=== PATIENT | female | born 1995 | race Two or more races ===

== ENCOUNTER 2018-03-08 09:23 | Inpatient (IN) | payer MEDICAID, OTHER ==
[~2018-03-08] VITALS: Ht 160 cm; Wt 92.9 kg
[2018-03-08] MEDS ORDERED: SODIUM CHLORIDE 0.9% 1,000 ML IV ONE (09:46)
[2018-03-08] MEDS ORDERED: LEVOFLOXACIN 500 MG/100 ML PREMIX BAG IV ONE (10:00)
[2018-03-08 10:09] LABS: Basophils # (auto) 0.1 uL; Basophils % (auto) 0.4 % (0.0-2.0); Eosinophils # (auto) 0 uL; Hemoglobin 14.2 g/dL (12.2-16.2); Lymphocytes # (auto) 1.4 uL; Lymphocytes % (auto) 8.6 % (10.0-50.0); Mean Corpuscular Hemoglobin 29.7 pg (28.0-32.0); Mean Corpuscular Hgb Conc. 32.9 g/dL (32.0-36.0); Mean Corpuscular Volume 90.4 fL (80.0-100.0); Monocytes # (auto) 0.4 uL; Monocytes % (auto) 2.7 % (0.0-12.0); Neutrophils # (auto) 14.4 uL; Neutrophils % (auto) 88.3 % (37.0-80.0); Nucleated Red Blood Cells % 0.1 %; Platelet Count (auto) 96 10^3/uL (140-450); Red Blood Cells 4.76 10^6/uL (4.0-5.20); Red Cell Distribution Width 14.5 % (11.8-14.3); White Blood Cell 16.3 10^3/uL (4.4-10.8)
[2018-03-08 10:23] LABS: INR 1.09 (0.9-1.15); Partial Thromboplastin Time 32.1 sec (23.78-33.04); Prothrombin Time 11.6 sec (9.27-12.13)
[2018-03-08 10:26] LABS: Alanine Aminotransferase 147 U/L (13-56); Albumin 2.7 g/dL (3.4-5.0); Anion Gap 9 (5-15); Aspartate Aminotransferase 78 U/L (15-37); BUN/Creatinine Ratio 15.8; Blood Urea Nitrogen 15 mg/dL (7-18); Calcium 7.7 mg/dL (8.5-10.1); Carbon Dioxide 22 mmol/L (21-32); Chloride 106 mmol/L (98-107); GFR African American 95 mL/min; GFR Non-African American 78 mL/min; Glucose 94 mg/dL (74-106); Potassium 3.9 mmol/L (3.5-5.1); Sodium 137 mmol/L (136-145)
[2018-03-08 10:32] LABS: Alkaline Phosphatase 68 U/L (45-117); Bilirubin, Total 1.2 mg/dL (0.2-1.0); Total Protein 6.1 g/dL (6.4-8.2)
[2018-03-08] MEDS: SODIUM CHLORIDE 0.9% 1,000 ML IV SCH ×2 (11:43→21:30)
[2018-03-08] MEDS ORDERED: NITROGLYCERIN 0.4 MG SL TAB SL PRN (11:45)
[2018-03-08] MEDS ORDERED: LORazepam 0.5 MG TAB PO PRN (11:45)
[2018-03-08] MEDS ORDERED: MORPHINE SULFATE 8mg/ml INJ SDV IV PRN ×3 (11:45)
[2018-03-08] MEDS ORDERED: LACTULOSE 20Gm/30ML SOLN PO PRN (11:45)
[2018-03-08] MEDS ORDERED: TEMAZEPAM 15 MG CAP PO PRN (11:45)
[2018-03-08] MEDS ORDERED: PROMETHAZINE HCL 25 MG/ML 1ML IV PRN (11:45)
[2018-03-08] MEDS ORDERED: SODIUM CHLORIDE 0.9% 500 ML IV ONE (11:45)
[2018-03-08] MEDS ORDERED: PIPERACILLIN-TAZOB 3.375GM 100 ML IV ONE (11:45)
[2018-03-08] MEDS ORDERED: predniSONE 20 MG TAB PO ONE (12:15)
[2018-03-08 12:16] LABS: Folate (Folic Acid) 23.06 ng/mL (5.38-24)
[2018-03-08] MEDS: ASPirin 81 mg TAB PO SCH (12:30)
[2018-03-08 12:32] LABS: CRP High Sensitivity 10.8 mg/dL (< 0.3)
[2018-03-08] MEDS: MYCOPHENOLATE 500 MG TAB PO SCH ×2 (14:00→22:08)
[2018-03-08 17:05] LABS: Urine Bacteria FEW /hpf (None Seen); Urine Blood 1+ /uL (Negative); Urine Mucus FEW (None Seen); Urine Specific Gravity 1.009 (1.001-1.035); Urine WBC 12 /hpf (0 - 5)
[2018-03-08 17:15] LABS: Alcohol, Urine < 3.0 mg/dL (0-5); Amphetamine Screen, Urine NEGATIVE (NEGATIVE); Barbiturate Scree,Urine NEGATIVE (NEGATIVE); Benzodiazephine Screen, Urine NEGATIVE (NEGATIVE); Cannabinoid Screen, Urine NEGATIVE (NEGATIVE); Cocaine Screen, Urine NEGATIVE (NEGATIVE); Opiate Scree,Urine NEGATIVE (NEGATIVE); Phencyclidine Screen, Urine NEGATIVE (NEGATIVE)
[2018-03-08] MEDS ORDERED: LORazepam 2MG/ML-1ML VIAL IV PRN (17:15)
[2018-03-08] MEDS: PIPERACILLIN-TAZOB 3.375GM 100 ML IV SCH (18:28)
[2018-03-08] MEDS ORDERED: ENOXAPARIN SOD 80 MG/0.8ML SYRINGE SC ONE (20:45)
[2018-03-08] MEDS ORDERED: IOHEXOL 350 MG/ML 100ML IJ ONE (20:55)
[2018-03-08] MEDS: predniSONE 20 MG TAB PO SCH (22:08)
[2018-03-08] MEDS: HYDROXYCHLOROQUINE SULFATE 200 MG TAB PO SCH (22:08)
[2018-03-08] MEDS ORDERED: LEVOFLOXACIN 750 MG IV ONE (22:32)
[2018-03-09] MEDS: PIPERACILLIN-TAZOB 3.375GM 100 ML IV SCH ×4 (00:27→18:40)
[2018-03-09] MEDS: MYCOPHENOLATE 500 MG TAB PO SCH ×3 (06:00→22:12)
[2018-03-09 07:02] LABS: Basophils # (auto) 0 uL; Basophils % (auto) 0.2 % (0.0-2.0); Eosinophils # (auto) 0 uL; Eosinophils % (auto) 0.1 % (0.0-7.0); Hematocrit 44.9 % (36.0-46.0); Hemoglobin 15.2 g/dL (12.2-16.2); Lymphocytes # (auto) 1.6 uL; Lymphocytes % (auto) 15.5 % (10.0-50.0); Mean Corpuscular Hemoglobin 30.7 pg (28.0-32.0); Mean Corpuscular Hgb Conc. 33.8 g/dL (32.0-36.0); Monocytes # (auto) 0.6 uL; Monocytes % (auto) 6.1 % (0.0-12.0); Neutrophils # (auto) 8.1 uL; Neutrophils % (auto) 78.1 % (37.0-80.0); Nucleated Red Blood Cells % 0.2 %; Platelet Count (auto) 138 10^3/uL (140-450); Red Blood Cells 4.93 10^6/uL (4.0-5.20); Red Cell Distribution Width 14.5 % (11.8-14.3); White Blood Cell 10.4 10^3/uL (4.4-10.8)
[2018-03-09 07:08] LABS: Albumin 2.6 g/dL (3.4-5.0); BUN/Creatinine Ratio 21.8; Bilirubin, Total 0.5 mg/dL (0.2-1.0); Calcium 8.3 mg/dL (8.5-10.1); Potassium 4.4 mmol/L (3.5-5.1); Total Protein 6.3 g/dL (6.4-8.2)
[2018-03-09] MEDS: SODIUM CHLORIDE 0.9% 1,000 ML IV SCH ×2 (07:52→17:43)
[2018-03-09] MEDS: predniSONE 20 MG TAB PO SCH ×2 (10:36→22:12)
[2018-03-09] MEDS: HYDROXYCHLOROQUINE SULFATE 200 MG TAB PO SCH ×2 (10:36→22:12)
[2018-03-09] MEDS: ASPirin 81 mg TAB PO SCH (10:36)
[2018-03-09] MEDS ORDERED: AZITHROMYCIN 500MG/ 250ML 250 ML IV ONE (13:45)
[2018-03-09 17:00] VITALS: BP 102/64
[2018-03-09] MEDS ORDERED: LISI10TA6 PO (17:41)
[2018-03-09] MEDS ORDERED: SPIR25TA89 PO (17:41)
[2018-03-09] MEDS ORDERED: CARV6.25 PO (17:41)
[2018-03-09] MEDS ORDERED: HYDR200T36 PO (17:41)
[2018-03-09] MEDS ORDERED: PRE5T PO (17:41)
[2018-03-09] MEDS ORDERED: MYCO500T PO (17:41)
[2018-03-09 22:00] VITALS: BP 99/64
[2018-03-10] MEDS: PIPERACILLIN-TAZOB 3.375GM 100 ML IV SCH ×3 (01:07→12:17)
[2018-03-10] MEDS: SODIUM CHLORIDE 0.9% 1,000 ML IV SCH ×2 (03:43→13:30)
[2018-03-10 05:00] VITALS: BP 102/65
[2018-03-10] MEDS: MYCOPHENOLATE 500 MG TAB PO SCH ×3 (06:31→22:21)
[2018-03-10] MEDS: predniSONE 20 MG TAB PO SCH ×2 (08:50→22:21)
[2018-03-10] MEDS: ASPirin 81 mg TAB PO SCH (08:51)
[2018-03-10] MEDS: HYDROXYCHLOROQUINE SULFATE 200 MG TAB PO SCH ×2 (08:51→22:21)
[2018-03-10 09:00] VITALS: BP 101/66
[2018-03-10] MEDS ORDERED: AZITHROMYCIN 500MG/ 250ML 250 ML IV SCH (10:00)
[2018-03-10 13:00] VITALS: BP 108/73
[2018-03-10 17:00] VITALS: BP 102/64
[2018-03-10 22:00] VITALS: BP 94/64
[2018-03-11] MEDS: SODIUM CHLORIDE 0.9% 1,000 ML IV SCH ×2 (04:17→18:20)
[2018-03-11] MEDS: MYCOPHENOLATE 500 MG TAB PO SCH ×3 (05:35→22:06)
[2018-03-11 05:51] VITALS: BP 101/71
[2018-03-11 09:00] VITALS: BP 111/77
[2018-03-11] MEDS: predniSONE 20 MG TAB PO SCH ×2 (10:25→22:06)
[2018-03-11] MEDS: ASPirin 81 mg TAB PO SCH (10:25)
[2018-03-11] MEDS: HYDROXYCHLOROQUINE SULFATE 200 MG TAB PO SCH ×2 (10:25→22:06)
[2018-03-11 12:36] VITALS: BP 114/75
[2018-03-11 17:00] VITALS: BP_SYST 114; BP_SYST 115; BP_DIAS 78; BP_DIAS 84; BP_DIAS 87
[2018-03-11 22:16] VITALS: BP 98/59
[2018-03-12 04:58] VITALS: BP 102/68
[2018-03-12] MEDS: MYCOPHENOLATE 500 MG TAB PO SCH (05:46)
[2018-03-12 06:46] LABS: Hematocrit 43.6 % (36.0-46.0); Hemoglobin 14.4 g/dL (12.2-16.2); Mean Corpuscular Hgb Conc. 33.1 g/dL (32.0-36.0); Mean Corpuscular Volume 90.7 fL (80.0-100.0); Platelet Count (auto) 364 10^3/uL (140-450); Red Blood Cells 4.81 10^6/uL (4.0-5.20); Red Cell Distribution Width 14.2 % (11.8-14.3); White Blood Cell 11.1 10^3/uL (4.4-10.8)
[2018-03-12 07:03] LABS: Band Neutrophils % (manual) 0; Basophils % (manual) 0 (0.0-2.0); Blast Cells 0; Eosinophils % (manual) 0 (0-7); Metamyelocytes % 0; Myelocytes % 0; Promyelocytes % 0; Reactive Lymphocytes 0
[2018-03-12 07:14] LABS: Albumin 2.9 g/dL (3.4-5.0); BUN/Creatinine Ratio 19.7; Calcium 8.7 mg/dL (8.5-10.1)
[2018-03-12 07:17] LABS: Bilirubin, Total 0.5 mg/dL (0.2-1.0); Total Protein 6.3 g/dL (6.4-8.2)
[2018-03-12 07:47] LABS: Lymphocytes % (manual) 22 (10.0-50.0); Monocytes % (manual) 6 (0-12)
[2018-03-12] MEDS: SODIUM CHLORIDE 0.9% 1,000 ML IV SCH (08:30)
[2018-03-12 09:00] VITALS: BP 111/77
[2018-03-12] MEDS: HYDROXYCHLOROQUINE SULFATE 200 MG TAB PO SCH (09:56)
[2018-03-12] MEDS: ASPirin 81 mg TAB PO SCH (09:56)
[2018-03-12] MEDS: predniSONE 20 MG TAB PO SCH (09:56)
[2018-03-12 10:43] VITALS: BP 111/77
== END 2018-03-12 11:40 | disposition home or self-care (01) | DRG 720 ==
LOC: ER 09:23 → TELE 09:24 → TELE-EAST 03-09 16:55
PROVIDERS: ADMIT Internal Medicine; ATTEND Internal Medicine
DX: A41.9 Sepsis, unspecified organism (principal); J18.9 Pneumonia, unspecified organism; I27.21 Secondary pulmonary arterial hypertension; I42.9 Cardiomyopathy, unspecified; E44.0 Moderate protein-calorie malnutrition; I50.9 Heart failure, unspecified; E88.09 Other disorders of plasma-protein metabolism, not elsewhere classified; E83.51 Hypocalcemia; D72.829 Elevated white blood cell count, unspecified; E86.0 Dehydration; T38.0X5A Adverse effect of glucocorticoids and synthetic analogues, initial encounter; N39.0 Urinary tract infection, site not specified; E66.9 Obesity, unspecified; E86.1 Hypovolemia; K76.0 Fatty (change of) liver, not elsewhere classified; Z79.899 Other long term (current) drug therapy; Y92.89 Other specified places as the place of occurrence of the external cause; Z68.36 Body mass index [BMI] 36.0-36.9, adult
CPT/HCPCS: 36415; 70450; 70551; 71045; 71275; 76705; 78226; 80053; 80061; 80307; 81001; 82150; 82550; 82607; 82746; 83605; 83690; 83735; 83880; 84443; 84484; 85007; 85025; 85027; 85379; 85610; 85652; 85730; 86141; 87040; 87086; 93005; 93306; 95819; 96361; 96372; 96374; 96375; J1956; J2543; J7517